=== PATIENT | female | born 1995 | race Caucasian/White ===

== ENCOUNTER 2022-07-06 06:07 | Emergency (ER) | payer OTHER ==
[~2022-07-06] VITALS: Ht 162.6 cm; Wt 75.0 kg
[2022-07-06 07:29] VITALS: BP 103/49
[2022-07-06] MEDS ORDERED: MAGNESIUM/ALUMINUM HYDROXIDE/SIMETHICONE 30ML UDC PO STA (10:37)
[2022-07-06] MEDS ORDERED: VISCOUS LIDOCAINE 2% 15 ML UDC PO STA (10:37)
[2022-07-06] MEDS ORDERED: FAMOTIDINE 20MG TABLET PO ONE (10:45)
[2022-07-06 12:36] LABS: BASOPHILS % 0.3 % (0.0-2.0); HEMATOCRIT. 38.5 % (36.0-48.0); HEMOGLOBIN. 13.1 g/dL (12.0-16.0); LYMPHOCYTES % 15.6 % (20.0-50.0); MEAN CORPUSCULAR HEMOGLOBIN 31.9 pg (28.0-32.0); MEAN CORPUSCULAR VOLUME 94.1 fL (81.0-99.0); MEAN PLATELET VOLUME 9.1 fl (7.4-10.4); MONOCYTES % 2.9 % (2.0-8.0); NEUTROPHILS % 81.2 % (40.0-76.0); PLATELET 345 x1000/uL (130-400); RED BLOOD CELL COUNT 4.09 mill/uL (4.2-5.4); RED CELL DISTRIBUTION WIDTH 14.2 % (11.6-14.6)
[2022-07-06 12:42] LABS: CHLORIDE 107 mEq/L (98-107)
[2022-07-06 12:56] LABS: CLARITY URINE CLEAR (CLEAR); COLOR URINE YELLOW (YELLOW); KETONES URINE NEGATIVE (NEGATIVE); LEUKOCYTE ESTERASE URINE TRACE (NEGATIVE); NITRITE URINE NEGATIVE (NEGATIVE); OCCULT BLOOD URINE TRACE (NEGATIVE); PROTEIN URINE NEGATIVE (NEGATIVE); SPECIFIC GRAVITY URINE 1.018 (1.005-1.030)
[2022-07-06 13:01] LABS: HCG SCREEN NEGATIVE
[2022-07-06] MEDS ORDERED: NITR-87 MT (13:50)
[2022-07-06] MEDS ORDERED: FAMO20TA8 MT (13:50)
== END 2022-07-06 14:13 | disposition home or self-care (01) ==
LOC: ER 06:23
DX: K29.70 Gastritis, unspecified, without bleeding (principal); N39.0 Urinary tract infection, site not specified
CPT/HCPCS: 36415; 80053; 81003; 81025; 84703; 85025; 99284